=== PATIENT | female | born 1930 | race Caucasian/White ===

== ENCOUNTER → 2017-11-14 | Outpatient (CLI) | payer MEDICARE ==
[~2017-11-14] MED LIST: ALBU90OI INH; ALBU90OI6 INH; ASPI81CH PO; ATOR40TA; AZIT250 PO; BUDE6HFA INH; CRUTCH4 USE; DULO60 PO; FLUT.05NI; HYDACE5 PO; HYDHOMSY; HYDR1TAB94 PO; LEVSOD50 PO; MED FOR OSTEOPOROSIS; OSTEOPOROSIS MED; PRED20 PO; PRED5 PO; PREDNISONE; RALO60; SIMV20; SIMV40 PO; TRAZ50; [UNRECOGNIZED DRUG - OTHER]; [UNRECOGNIZED DRUG - REMARK]; [UNRECOGNIZED DRUG - REMARK]
== END | disposition home or self-care (01) ==
LOC: PLD 09:11 → LAB SHORT 09:11
DX: D48.5 Neoplasm of uncertain behavior of skin (principal)
CPT/HCPCS: 88304

== ENCOUNTER 2017-12-11 07:55 | Emergency (ER) | payer MEDICARE ==
[~2017-12-11] VITALS: Ht 160 cm; Wt 54.4 kg
[~2017-12-11 07:55] MED LIST changes: -ASPI81CH PO; -DULO60 PO; -HYDR1TAB94 PO
[2017-12-11] MEDS ORDERED: HYDR1TAB94 PO (08:32)
[2017-12-11] MEDS ORDERED: DULO60 PO (08:32)
[2017-12-11] MEDS ORDERED: PRED5 PO (08:32)
[2017-12-11] MEDS ORDERED: ASPI81CH PO (08:32)
[2017-12-11 08:52] LABS: BASOPHILS ABSOLUTE AUTO 0.06 K/mm3 (0.00-0.23); BASOPHILS PERCENT AUTO 1 % (0-2); EOSINOPHILS ABSOLUTE AUTO 0.63 K/mm3 (0.00-0.68); EOSINOPHILS PERCENT AUTO 5 % (0-6); Hematocrit 39.4 % (33.0-51.0); Hemoglobin 13.1 g/dL (11.5-16.0); IMMATURE GRAN ABSOLUTE AUTO 0.05 K/mm3 (0.00-0.10); IMMATURE GRAN PERCENT AUTO 0 % (0-1); LYMPHOCYTES ABSOLUTE AUTO 2.02 K/mm3 (0.84-5.20); LYMPHOCYTES PERCENT AUTO 17 % (21-46); MONOCYTES ABSOLUTE AUTO 1.79 K/mm3 (0.16-1.47); MONOCYTES PERCENT AUTO 15 % (4-13); Mean Corpuscular HGB 30.8 pg (26.0-34.0); Mean Corpuscular HGB Conc 33.2 g/dL (31.5-36.5); Mean Corpuscular Volume 93 fL (80-100); Mean Platelet Volume 9.2 fL (9.1-12.4); NEUTROPHILS PERCENT AUTO 61 % (41-73); Platelet Count 393 K/mm3 (150-400); RDW Coefficient Variation 12.7 % (11.7-14.2); RDW Standard Deviation 43.1 fL (35.1-46.3); Red Blood Cell Count 4.25 M/mm3 (3.80-5.20); White Blood Cell Count 11.75 K/mm3 (4.00-11.30)
[2017-12-11 09:16] LABS: Albumin, Blood 2.7 g/dL (3.4-5.0); Albumin/Globulin Ratio 0.6 (0.8-1.8); Bilirubin, Total 0.5 mg/dL (0.1-1.0); Bun/Creatinine Ratio 19.6 (12.0-20.0); Calcium, Blood 8.9 mg/dL (8.5-10.1); Creatinine, Blood 1.12 mg/dL (0.40-1.00); Globulin, Blood 4.3 g/dL (2.2-4.0)
== END 2017-12-11 11:36 | disposition home or self-care (01) ==
LOC: ER 07:55
PROVIDERS: Emergency Medicine
DX: K59.00 Constipation, unspecified (principal); E03.9 Hypothyroidism, unspecified; E78.5 Hyperlipidemia, unspecified; J44.9 Chronic obstructive pulmonary disease, unspecified; Z79.899 Other long term (current) drug therapy; Z79.52 Long term (current) use of systemic steroids
CPT/HCPCS: 36415; 74177; 80053; 83690; 85025; 93005; 93010; 99284; Q9967

== ENCOUNTER 2019-03-20 08:58 | Emergency (ER) | payer MEDICARE ==
[~2019-03-20] VITALS: Ht 160 cm; Wt 54.4 kg
[~2019-03-20 08:58] MED LIST changes: +AMLO5 PO; +ASPI81CH PO; +CEFU500T30; +DOCU100 PO; +DULO60 PO; +HYDR1TAB94 PO; +METO50ER PO; +PRED5; +TOLT4 PO; -TRAZ50; +TRAZ50 PO
[2019-03-20] MEDS ORDERED: Voltaren100 GM TOP ×2 (09:38→11:48)
[2019-03-20] MEDS ORDERED: Percocet 5-3251 EACH PO ×2 (09:38→11:48)
[2019-03-20] MEDS ORDERED: Colace100 MG PO ×2 (09:38→11:48)
== END 2019-03-20 10:27 | disposition home or self-care (01) ==
LOC: ER 08:58
DX: M75.22 Bicipital tendinitis, left shoulder (principal); E03.9 Hypothyroidism, unspecified; E78.5 Hyperlipidemia, unspecified; J44.9 Chronic obstructive pulmonary disease, unspecified; Z79.899 Other long term (current) drug therapy; Z87.891 Personal history of nicotine dependence
CPT/HCPCS: 99283

== ENCOUNTER 2019-03-28 14:00 | Inpatient (IN) | payer MEDICARE ==
[~2019-03-28] VITALS: Ht 162.6 cm; Wt 51.9 kg
[~2019-03-28 14:00] MED LIST changes: +Colace100 MG PO; +Percocet 5-3251 EACH PO; +Voltaren100 GM TOP
[2019-03-28 14:20] LABS: BASOPHILS ABSOLUTE AUTO 0.08 K/mm3 (0.00-0.23); BASOPHILS PERCENT AUTO 1 % (0-2); EOSINOPHILS ABSOLUTE AUTO 0.11 K/mm3 (0.00-0.68); EOSINOPHILS PERCENT AUTO 1 % (0-6); Hematocrit 39.9 % (33.0-51.0); Hemoglobin 12.7 g/dL (11.5-16.0); IMMATURE GRAN ABSOLUTE AUTO 0.08 K/mm3 (0.00-0.10); IMMATURE GRAN PERCENT AUTO 1 % (0-1); LYMPHOCYTES ABSOLUTE AUTO 1.49 K/mm3 (0.84-5.20); LYMPHOCYTES PERCENT AUTO 12 % (21-46); MONOCYTES ABSOLUTE AUTO 0.69 K/mm3 (0.16-1.47); MONOCYTES PERCENT AUTO 6 % (4-13); Mean Corpuscular HGB 29.8 pg (26.0-34.0); Mean Corpuscular HGB Conc 31.8 g/dL (31.5-36.5); Mean Corpuscular Volume 94 fL (80-100); Mean Platelet Volume 9.7 fL (9.1-12.4); NEUTROPHILS ABSOLUTE AUTO 9.79 K/mm3 (1.96-9.15); NEUTROPHILS PERCENT AUTO 80 % (41-73); Platelet Count 444 K/mm3 (150-400); RDW Coefficient Variation 13.8 % (11.7-14.2); RDW Standard Deviation 47.6 fL (35.1-46.3); Red Blood Cell Count 4.26 M/mm3 (3.80-5.20); White Blood Cell Count 12.24 K/mm3 (4.00-11.30)
[2019-03-28] MEDS ORDERED: PRED5 PO (14:34)
[2019-03-28 14:41] LABS: Alanine Aminotransfer (ALT/SGP 19 U/L (12-78); Albumin, Blood 3.5 g/dL (3.4-5.0); Alk Phos 82 U/L (50-136); Anion Gap 6 mmol/L (6-16); Aspartate Aminotrans (AST/SGOT 17 U/L (12-37); Bilirubin, Total 0.4 mg/dL (0.1-1.0); Blood Urea Nitrogen 35 mg/dL (8-24); Bun/Creatinine Ratio 29.2 (12.0-20.0); CO2, Blood 26 mmol/L (21-32); Calcium, Blood 9.5 mg/dL (8.5-10.1); Chloride, Blood 103 mmol/L (98-108); Globulin, Blood 3.5 g/dL (2.2-4.0); Glomerular Filtration Rate 45 (60-); Glucose, Blood 153 mg/dL (70-99); Magnesium, Blood 2.2 mg/dL (1.6-2.4); Potassium, Blood 4.8 mmol/L (3.5-5.5); Sodium, Blood 135 mmol/L (136-145); Troponin I <0.015 ng/mL (0.000-0.040)
--- NOTE | 2019-03-28 20:30 | NUR ---
ASSUMED CARE RECIEVED REPORT FROM TRAVEL SERVICE CONSULTANT. PT ARRIVED TO UNIT @ 1948 AND IS S/P ACID IMPLANTATION. PT IS SOMNOLENT, BUT FOLLOWS DIRECTIONS AND IS ORIENTED TO HERSELF AND WHERE SHE IS LOCATED. PT REPORTS NO CHEST PAIN, SOB, N/T, OR HAS ANY COMPLAINTS OTHER THAN FEELING COLD. PT'S FIELD START IV IN LEFT AC DOES NOT DRAW OR FLUSH, IV IN RIGHT WRIST FLUSHES AND DRAWS. PT'S ETREMETIES ARE COOL TO TOUCH, BUT STRONG PULSES IN ALL EXTREMETIES. HR IS IN 60-70'S. WAS IN ROOM BUT LEFT FOR NIGHT.
--- NOTE | 2019-03-28 20:30 | NUR ---
UPDATE PT COMFORTABLE IN BED. SLING IS ON LEFT ARM, AND ICE PACK IS PLACED ON SITE WHERE ACID WAS IMPLANTED. SWELLING AND ECCHYMOSIS PRESENT AROUND SITE. NO CREPITUS FELT (AT ONE POINT THERE MAY HAVE BEEN MINIMAL). PT DENIES CHEST PAIN, N/T (ASIDE FROM TINGLING IN FEET, WHICH SHE SAYS IS HER BASELINE), SOB, AND NAUSEA. BED LOW AND LOCKED, CALL LIGHT WITHIN REACH.
--- NOTE | 2019-03-29 03:04 | NUR ---
UPDATE PT'S PACEMAKER SITE REMAINS SWOLLEN, AND BRUISED. BUT DOES NOT APPEAR TO BE WORSE. ICE PACK HAD BEEN TAKEN OFF FOR 2 HOURS, AND IS NOW BEING REAPPLIED TO SITE. NO CREPITUS PALPATED. HR HAS BEEN 70-80'S THROUGHOUT NIGHT. BLOOD PRESSURE SLIGHTLY LABILE (SEE VS). PT REMAINS ON 2LNC, SAT'ING 92-94. PT DENIES DIZZINESS, SOB, CP, PAIN, AND NAUSEA.
[2019-03-29 03:20] LABS: BASOPHILS PERCENT AUTO 1 % (0-2); EOSINOPHILS ABSOLUTE AUTO 0.34 K/mm3 (0.00-0.68); EOSINOPHILS PERCENT AUTO 2 % (0-6); Hemoglobin 12.9 g/dL (11.5-16.0); IMMATURE GRAN ABSOLUTE AUTO 0.09 K/mm3 (0.00-0.10); IMMATURE GRAN PERCENT AUTO 1 % (0-1); LYMPHOCYTES ABSOLUTE AUTO 3.33 K/mm3 (0.84-5.20); LYMPHOCYTES PERCENT AUTO 18 % (21-46); MONOCYTES ABSOLUTE AUTO 2.04 K/mm3 (0.16-1.47); MONOCYTES PERCENT AUTO 11 % (4-13); Mean Corpuscular HGB 29.9 pg (26.0-34.0); Mean Corpuscular HGB Conc 32.3 g/dL (31.5-36.5); Mean Corpuscular Volume 93 fL (80-100); Mean Platelet Volume 9.9 fL (9.1-12.4); NEUTROPHILS ABSOLUTE AUTO 12.87 K/mm3 (1.96-9.15); NEUTROPHILS PERCENT AUTO 69 % (41-73); Platelet Count 417 K/mm3 (150-400); RDW Coefficient Variation 13.7 % (11.7-14.2); RDW Standard Deviation 47.1 fL (35.1-46.3); Red Blood Cell Count 4.32 M/mm3 (3.80-5.20); White Blood Cell Count 18.77 K/mm3 (4.00-11.30)
[2019-03-29 03:35] LABS: Bun/Creatinine Ratio 27.8 (12.0-20.0); Calcium, Blood 8.7 mg/dL (8.5-10.1); Creatinine, Blood 1.15 mg/dL (0.40-1.00); Magnesium, Blood 1.9 mg/dL (1.6-2.4); Potassium, Blood 4.4 mmol/L (3.5-5.5)
--- NOTE | 2019-03-29 05:27 | NUR ---
SHIFT SUMMARY PT SLEPT THROUGHOUT NIGHT. WHEN SHE IS AWAKE SHE IS ALERT AND ORIENTED SELF AND SURROUNDINGS. PT IS S/P ACID IMPLANTATION. SITE IS SWOLLEN, AND ECCHYMOTIC, BUT DID NOT GET WORSE OVERNIGHT. ICE PACKS HAVE BEEN ROTATED ON AND OFF SITE THROUGHOUT NIGHT. ARM SLING IN PLACE. PACEMAKER/ACID IS DDD, WITH A LOW RATE OF 60 AND A HIGH RATE OF 130; HAS NOT NEEDED THE CHANCE TO INHIBIT OR TRIGGER TONIGHT OF YET. PT HAS VERY FRAGILE SKIN, AND EARLY THIS MORNING SHE APPEARS TO BE SLIGHTLY DIAPHORETIC. PT DENIES CHEST PAIN, SOB, NAUSEA, OR PAIN IN GENERAL. PT DOES NOT FEEL HOT, AND IS AFEBRILE. PT HAS A BNP OF 334, THOUGH. PT RIGHT WRIST IV IS SALINE LOCKED, AND NS TKO IS CAPPED UNTIL NEXT DOSE OF ANTIBIOTIC. PT IS SLIGHTLY HYPERTENSIVE ALL NIGHT, SHE IS OFF HER HOME BP MED (LOPRESSOR) AND WAS STARTED ON NORVASC LAST NIGHT. SBP 150-160'S POST NORVASC DOSE. HR 70'S-80'S. APPEARS TO HAVE A LBBB, IS IN AFIB, AND HAS HAD MULTIPLE PVC'S AND ESCAPE VENTRICULAR BEATS. ADMISSION HISTORY NOT COMPLETELY DONE, DUE TO SOMNOLENT/LETHARGY S/P PROCEDURE. WAS AT BEDSIDE BRIEFLY, BUT WENT HOME AND STATES WILL RETURN IN THE AM. BED IS LOW AND LOCKED. CALL LIGHT WITHIN REACH.
[2019-03-29 10:16] LABS: Source, Urine Catheter
[2019-03-29 10:37] LABS: Appearance, Urine Clear (Clear); Bilirubin, Urine Neg (Neg); Blood, Urine Neg (Neg); Color, Urine Yellow (P-Yellow); Glucose Qualitative, Urine Neg (Neg); Ketones, Urine Neg (Neg); Leukocyte Esterase, Urine Neg (Neg); Nitrite, Urine Neg (Neg); Protein, Urine 2+ (Neg); Urobilinogen, Urine NORM (Normal)
[2019-03-29 11:04] LABS: Bacteria Rare /hpf; Red Blood Cells, Urine 0-2 /hpf (0-2); Squamous Epithelial Cells Not Seen /hpf (Few); White Blood Cells, Urine 0-2 /hpf (0-5)
[2019-03-29] MEDS ORDERED: LEVSOD50 PO (13:48)
--- NOTE | 2019-03-29 18:44 | NUR ---
SHIFT SUMMARY: NO ACUTE CHANGES NOTED T/O THE DAY. PT HAS BEEN HAVING SOME DIFFICULTY WITH PAIN, MEDICATED WITH ORDERED MEDS, BUT PT DENIES PAIN IS MANAGED STATING "I AM STILL IN PAIN". PACER SITE REMAINS UNCHANGED IN APPEARANCE NOTED TO BE VERY ECCHYMOTIC AND RED AROUND SITE. SOME TENDERNESS NOTED WITH PALPATION. T/O THE DAY PT BECAME 100% PACED. PHYSICAL THERAPY CAME IN TO ASSESS AND WORK WITH THE PT. PT IS NOTED TO BE ATTEMPTING TO USE HER L HAND/ARM TO BRACE HERSELF WHILE WALKING EVEN WITH MULTIPLE VERBAL AND PHYSICAL (BY PLACING STAFF HANDS ON HER HAND) QUES TO NOT USE HER L ARM. PT CALLED OUT IN FEAR OF FALLING WHEN PHYSICAL THERAPY WAS SCOOTING HER TO THE EDGE OF THE BED. VSS T/O THE DAY. WILL CONTINUE TO MONITOR AND REPORT TO ONCOMING RN.
--- NOTE | 2019-03-29 22:23 | NUR ---
START OF SHIFT: REPORT FROM UMANG MERAZ. PT A+O, VSS, LEFT S/P PACEMAKER SITE WITH SIGNIFICANT BRUISING NOTED AROUND SITE WITH WHAT APPEARS SLIGHT LEFT OF NECK/CLAVICLE SWELLING WHICH IS SOFT AND NON-PAINFUL WHEN PALPATED. NO CREPITUS NOTED. PT CONTINUES WITH LEFT ARM IMMOBILIZER AND USES CALL LIGHT APPROPRIATELY WHEN NEEDS BSC. PT OTHERWISE PLEASANT AND REQUESTS TO SLEEP TONIGHT. PT WAS ORDERED HOME MED TRAZADONE AND WAS GIVEN ORDERED DOSE. PT CONTINUES ON MONITOR WITH HR 80'S-TO LOW 100'S C/ ACITIVITY, IS 100% PACED C/ OCCASIONAL PVC'S. PT THUS FAR HAS BEEN RESTING WELL USING CALL LIGHT ONCE, SO FAR, TO USE BSC. CALL LIGHT WITHIN REACH.
--- NOTE | 2019-03-30 05:49 | NUR ---
SHIFT SUMMARY: PT RESTED MOST OF NOC. VSS. PT CALLING OUT MORE THAN USING CALL LIGHT WHEN NEEDING TO VOID. PT EACH TIME STATED WAS TRYING TO GET OUT OF BED TO USE THE RESTROOM. PT NEEDING FULL ASSIST WHEN UP AND SEEMS FEARFUL TO STAND UPRIGHT. PT NEEDING CONSTANT REMINDERS NOT TO USE LEFT ARM. HOWEVER, PT MORE PLEASANT AND MORE CONVERSIVE THIS NOC SHIFT. WILL REPORT OFF TO ONCOMING RN. CALL LIGHT WITHIN REACH.
--- NOTE | 2019-03-30 07:05 | NUR ---
ASSUMED CARE: RECEIVED REPORT FROM NOC RN. NO CHAGES NOTED T/O THE NIGHT. NO DISTRESS NOTED. PT APPEARS TO BE DEPRESSED TODAY NOTED BY HER FACIAL EXPRESSIONS AND THE STATEMENT OF HER HAIR FALLING OUT MAKING HER FEEL SAD. WILL CONTINUE TO MONITOR AND ASSESS.
--- NOTE | 2019-03-30 08:37 | NUR ---
INTERCANULA REPLACEMENT: CALL LIGHT ON, UPON ENTERING THE ROOM PT HAS INTERCANULA WITH ALL ALL ATTACHMENTS ATTACHED IN HER HAND. MT Hernandez RN REPLACED INTERCANULA, ONCE IN PT STATES IT FELL ON THE FLOOR. DECIDED TO REPLACE INTERCANULA OBTAINED KIT THAT WAS JUST OUTSIDE THE ROOM AND REPLACED INTERCANULA WITH NEW ONE. NOTIFIED CARLTON PRADHAN OF REPLACEMENT.
--- NOTE | 2019-03-30 18:21 | NUR ---
Called to meet with family and patient to discuss advance directives. Pt resting in bed eating some of her dinner with good tolerance. Pt alert has some trouble tracking conversation but able to participate in converstion. has reviewed advance directive and want to updat them for himself and the patient. extensive conversation of their judie care needs, we discussed perez, POA estate planning and how to support children in careing for them. We initiated AD and he will discuss with his son and have them witnessed. We completed A POLST for the patient. We discussed carefully what the function of the implated device. we reviewed that if she should have an event at home what to tell the paramedics. We reviewed all levels of treatment. they both feel they would not want CPr and want limited treatments no intubation. We review spiritual beliefs and not descriminating on age. encourged them to express their feeling since they were deciding together. It was a beautiful interaction to witness! The patients will review their choices with their sons. Physican notified of completed polst.
--- NOTE | 2019-03-30 19:16 | NUR ---
SHIFT SUMMARY: NO ACUTE CHANGES NOTED T/O THE DAY TALKED TO THE FAMILY ABOUT ADVANCE DIRECTIVES, PROVIDED PT AND WITH ONE TO FILL OUT. REQUESTED A SECOND ONE SO HE COULD FILL ONE OUT FOR HIMSELF WELL. CALLED TEA IN [facility] TO FURTHER EDUCATE PT AND . POST OBTAINED AND PLACED ON THE FRONT OF THE CHART. DR NOE NOTIFIED OF POLST AND RECEIVED NEW ORDERS FOR DNR, DR AWARE POLST IS ON THE FRONT OF CHART FOR DR TO SIGN TOMORROW. VSS T/O THE DAY. WILL CONTINUE TO MONITOR AND REPORT TO ONCOMING RN.
--- NOTE | 2019-03-30 19:50 | NUR ---
ASSUMED CARE PT IS ALERT AND ORIENTED X 2-3, SHE KNOWS SHES IN A HOSPITAL BUT SAID "IN [place]". SLIGHTLY IRRITABLE AND CONFUSED. STATED "YOU AREN'T GOING TO HOOK ME UP TO ANYTHING... WHO DO YOU REPRESENT?" WHEN I WENT TO PUT THE PULSE OX ON HER FINGER. CURRENTLY WATCHING TV, CONTENT, IN BED. LEFT ARM IS SLING, AND SHE IS REMINDED TO NOT USE IT. PT DENIES CP, SOB, NAUSEA, AND ANY PAIN IN GENERAL. SCD'S IN PLACE. CALL LIGHT WITHIN REACH. BED LOW AND LOCKED.
--- NOTE | 2019-03-30 21:23 | NUR ---
CHANGE IN MENTATION PT IS VERY CONFUSED, ANGRY/IRRITABLE, AND HAS SLIGHT PARANOIA. REFUSING AND BATTLING WITH ME REGARDING HER ASSESSMENT, AND TAKING VITALS. SHE IS MAKING ODD STATMENTS REGARDING "MEETINGS GOING ON OUTSIDE THE ROOM; WHO DO I REPRESENT; WHO IS THE SHALE PROCESSING TECHNICIAN OF THIS ESTABLISHMENT; ETC..." SHE THINKS THERE IS A CONSPIRACY GOING ON, AND THAT SHES IN [place]. AFTER REDIRECTING/REASSURING HER THAT SHES IN THE ICU/HOSPITAL AT [facility] IN [place], SHE GETS AGITATED EASILY SAYING "I KNOW THAT!" SHE IS VERY FORGETFUL ASKING THE SAME/SIMILAR QUESTIONS OVER AGAIN. SHE REQUESTED TO CALL HER , AND HE IS NOW AT BEDSIDE. PER , THIS IS NOT NORMAL BEHAVIOR FOR HER. DAY RN, DESCRIBED DIFFERENT MORE ORIENTED BEHAVIOR THAN THIS. HAD SOME LUCK TALKING TO HER, CALMING HER DOWN A LITTLE BUT SHE IS STILL PARANOID AND IRRITABLE. I WAS ABLE TO GET HER BLOOD PRESSURE, BUT SHE IS REFUSING ANY FUTURE VITAL SIGNS, AND ASSESSMENTS. KEVIN THE AUTO ELECTRICAL TECHNICIAN, CAME IN TO ROOM AND WITNESSED MOST OF THIS BEHAVIOR. I ALSO WAS ABLE TO TALK HER IN TO TAKING HER ANTIBIOTIC BEFORE BEDTIME. SHE IS CURRENTLY IN ROOM WITH , BOTH APPEAR TO BE SLEEPING. BED LOW AND LOCKED. CALL LIGHT WITHIN REACH.
--- NOTE | 2019-03-31 00:50 | NUR ---
UPDATE PT STARTING TO INTENTIONALLY DISCONNECT EKG CHORDS. WAS ABLE TO DISTRACT HER AND GET HER ATTENTION ON SOMETHING DIFFERENT. CONTINUING TO BE IRRITABLE, PARANOID, AND CONFUSED. SHE IS NOT UNDERSTANDING WHY SHE JUST CAN'T GO HOME. SHE IS CONVINCED THERE ARE "MEETINGS" OCCURING OUTSIDE HER ROOM. ALSO STATED THAT SHE WON'T TAKE ANY MEDICATIONS FROM ME. PT IS NOW NOT BEING PACED ( OF 23 TONIGHT), AND IS IN AFIB WITH A RATE BETWEEN 120-150, DENIES CP/SOB, AND NAUSEA. PLACED CALL TO CA, HE DISCUSSED WITH ME THAT THE EKG CHANGE IS RELATED TO ICU DELERIUM, OR WHATEVER IS GOING ON PSYCHOLOGICALLY WITH THE PT. PLACED CALL TO HOSP ([facility]) AND HE ORDERED 5MG ZYPREXA IM NOW.
[2019-03-31 03:28] LABS: BASOPHILS ABSOLUTE AUTO 0.06 K/mm3 (0.00-0.23); BASOPHILS PERCENT AUTO 0 % (0-2); EOSINOPHILS ABSOLUTE AUTO 0.37 K/mm3 (0.00-0.68); EOSINOPHILS PERCENT AUTO 2 % (0-6); Hematocrit 38.3 % (33.0-51.0); Hemoglobin 12.2 g/dL (11.5-16.0); IMMATURE GRAN ABSOLUTE AUTO 0.11 K/mm3 (0.00-0.10); IMMATURE GRAN PERCENT AUTO 1 % (0-1); LYMPHOCYTES ABSOLUTE AUTO 2.27 K/mm3 (0.84-5.20); LYMPHOCYTES PERCENT AUTO 13 % (21-46); MONOCYTES PERCENT AUTO 15 % (4-13); Mean Corpuscular HGB Conc 31.9 g/dL (31.5-36.5); Mean Corpuscular Volume 94 fL (80-100); Mean Platelet Volume 10.2 fL (9.1-12.4); NEUTROPHILS ABSOLUTE AUTO 11.84 K/mm3 (1.96-9.15); NEUTROPHILS PERCENT AUTO 69 % (41-73); Platelet Count 329 K/mm3 (150-400); RDW Coefficient Variation 13.7 % (11.7-14.2); RDW Standard Deviation 47.8 fL (35.1-46.3); Red Blood Cell Count 4.06 M/mm3 (3.80-5.20); White Blood Cell Count 17.25 K/mm3 (4.00-11.30)
[2019-03-31 03:47] LABS: Anion Gap 7 mmol/L (6-16); Blood Urea Nitrogen 25 mg/dL (8-24); Bun/Creatinine Ratio 26.9 (12.0-20.0); CO2, Blood 26 mmol/L (21-32); Calcium, Blood 8.8 mg/dL (8.5-10.1); Chloride, Blood 106 mmol/L (98-108); Creatinine, Blood 0.93 mg/dL (0.40-1.00); Glomerular Filtration Rate >60 (60-); Glucose, Blood 122 mg/dL (70-99); Potassium, Blood 4.3 mmol/L (3.5-5.5); Sodium, Blood 139 mmol/L (136-145)
--- NOTE | 2019-03-31 04:14 | NUR ---
UPDATE PT REFUSES 0400 VITAL SIGNS. PT HAD A BRIEF REST POST ZYPREXA IM AND EVEN LET LAB DO A BLOOD DRAW. BUT NOW REMAINS CONFUSED, PARANOID, AND IRRITABLE.
--- NOTE | 2019-03-31 06:27 | NUR ---
SHIFT SUMMARY PT IS CURRENTLY AT THE SAME MENTATION. REFUSING ALL CARE. SHE BELIEVES THAT WE (THE NURSES AND ANY STAFF THAT HAS GONE IN THE ROOM) HAVE TAKEN OVER THE HOSPITAL AND ARE USING IT A COVER TO DO WHATEVER WE ARE SUPPOSABLY DOING. VERY PARANOID AND IRRITABLE. BELIEVES HER IS NOW 'PART OF THE CONSPIRACY'. PT REMAINED IN SLING OVERNIGHT. PT NOW IN AFIB WITH 0% PACING. THIS CHANGE OCCURED AROUND MIDNIGHT. PT DENIED CP/SOB, BUT WHO KNOWS HOW MUCH OF WHAT SHE SAYS IS ACCURATE. TALKED TO - THIS BEHAVIOR IS ALL ABNORMAL, HOWEVER, HAD AN EPISODE OF IRRATIONAL PARANOIA 6MO AGO, THAT WAS RESOLVED. NOW BACK AT BEDSIDE. BED LOW AND LOCKED.
--- NOTE | 2019-03-31 07:39 | NUR ---
ASSUMED CARE: PT SITTING IN BED, AT BEDSIDE. STATES SHE IS GOING HOME TODAY. NIGHT RN STATES SHE HAS BEEN SHOWING SIGNS OF PARANOIA. NO ACUTE NEEDS OR CONCERNS AT THIS TIME.
--- NOTE | 2019-03-31 10:08 | NUR ---
PT'S SON CALLED TO RECIEVE AN UPDATE. DISCUSSED WITH PT'S WHO STATES HE WILL CALL HIM TO GIVE HIM A DETAILED UPDATE. SON HAS BEEN MADE AWARE OF THIS
--- NOTE | 2019-03-31 10:20 | NUR ---
CALL TO DR PENALOZA THIS AM ABOUT PT'S HR. CURRENTLY AFIB IN 1TEENS BUT TOUCHING IN 130S AT TIMES. SEE NEW ORDERS. STATES TO GIVE TOPROL XL NOW AND TO CALL IF BECOMES HYPERTENSIVE BUT WANTS TO GIVE MED THE DAY TO MANAGE HR. RELIEF WORKER AWARE
--- NOTE | 2019-03-31 10:37 | NUR ---
PT'S STOOD BY AT BEDSIDE WHILE PT TOOK TOPROL. SHE APPEARS TO BE MORE AGREEABLE TO TAKING MEDS IF HE REITERATES WHAT STAFF SAYS TO HER
--- NOTE | 2019-03-31 13:30 | NUR ---
CALL TO DR NOE FOR PT'S URINARY RETENTION. BLADDER SCAN REVEALED AVERAGE OF 450. ORDERED STRAIGHT CATH. PERFORMED WITH ASSISTANCE OF KEYMODULE ASSEMBLY SUPERVISOR. NO FURTHER NEEDS AT THIS TIME.
--- NOTE | 2019-03-31 14:35 | NUR ---
[facility] initial visit: Mrs. Cantrell was alone in room and quite angry. She complained to me that she doesn't like her bed, the food, the TV... She also had trouble mentally focusing on one thing. As she told me a concern and I began to address (such as cutting up her lunch for her), she would deny she asked for help. 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 She declined prayer and did not calm to quiet assurance of care and attention. I will remain available to pt and spouse.
--- NOTE | 2019-03-31 14:40 | NUR ---
pt aggitated today but denies pain. wanting out of bed. heart rate increased.
--- NOTE | 2019-03-31 17:33 | NUR ---
jj filed on chart and orignal and copies prepared for family
--- NOTE | 2019-03-31 17:36 | NUR ---
SHIFT SUMMARY: PT RESTING IN BED WITH AT BEDSIDE. HAS BEEN CALM WHEN VISITORS ARE WITH HER. HAS NOT REFUSED CARE THIS SHIFT. CURRENTLY AFIB WITH HR OF 111. DENIES CHEST PAIN. STRAIGHT CATH ONCE THIS SHIFT FOR RETENTION. ARM IMMOBILIZER IN PLACE DUE TO NEW PACER. ASSISTED UP TO BSC ONCE WITH HEAVY 2 ASSIST REQUIRED. NO FURTHER NEEDS OR CONCERNS.
--- NOTE | 2019-03-31 22:08 | NUR ---
PATIENT AWAKE AND CONFUSED, YELLING OUT AT TIMES. TAKING PO MEDICATIONS WITHOUT DIFFICULTY. PATIENT NOW HALLUCINATING SEEING PEOPLE IN THE ROOM, THINKING THAT SHE IS AT HOME AND ANGRY THAT PEOPLE HAVE BROUGHT IN GIFTS AND HANG THEM ON THE WHITNEY. ATTEMPTING TO REORIENTED PATIENT TO BEING IN THE HOSPITAL, PATIENT BECOMING ANGRY WITH ATTEMPT TO REMIND PATIENT THAT SHE IS IN THE HOSPITAL. PATIENT INCONT OF URINE ATTENDS IN PLACE. LEFT SHOULDER IMMOBILIZER IN PLACE DRESSING TO LEFT CHEST CD&I WITH BRUISING. SMALL SKIN TEAR TO LEFT WRIST, NAME BAND REMOVED AND AREA COVERED WITH FOAM DRESSING.
--- NOTE | 2019-03-31 23:47 | NUR ---
PATIENT AWAKE AND INSISTING TO GET OUT OF BED TO TOILET. ATTEMPTING TO GET PATIENT UP PATIENT HAS VERY POOR BALANCE AND UNABLE TO SIT AT SIDE OF BED. PATIENT LAYED BACK DOWN AND PLACED ON BED WILLARD. PATIENT PASS FLATUS BUT NO URINE. APROX 1/2HR LATER PATIENT RESTLESS AGAIN AND ATTEMPTING TO GET OUT OF BED. PATIENT PLACED ON BED WILLARD AND AGAIN NO URINE BUT PASSING GAS.
--- NOTE | 2019-04-01 00:14 | NUR ---
PATIENT ATTEMPTING TO GET OUT OF BED TO VOID AGAIN, BED WILLARD PLACED WITH NO RESULTS. BLADDER SCAN DONE SHOWING 199CC OF URINE. ATTENDS REPLACED.
[2019-04-01 03:24] LABS: Hematocrit 38.3 % (33.0-51.0); Hemoglobin 12.1 g/dL (11.5-16.0); Mean Corpuscular HGB 29.5 pg (26.0-34.0); Mean Corpuscular HGB Conc 31.6 g/dL (31.5-36.5); Mean Corpuscular Volume 93 fL (80-100); Mean Platelet Volume 10.2 fL (9.1-12.4); Platelet Count 325 K/mm3 (150-400); RDW Standard Deviation 47.9 fL (35.1-46.3); White Blood Cell Count 16.27 K/mm3 (4.00-11.30)
[2019-04-01 03:42] LABS: Albumin, Blood 3.3 g/dL (3.4-5.0); Anion Gap 7 mmol/L (6-16); Blood Urea Nitrogen 32 mg/dL (8-24); Bun/Creatinine Ratio 32.6 (12.0-20.0); CO2, Blood 27 mmol/L (21-32); Chloride, Blood 107 mmol/L (98-108); Creatinine, Blood 0.98 mg/dL (0.40-1.00); Glomerular Filtration Rate 57 (60-); Glucose, Blood 121 mg/dL (70-99); Phosphorus, Blood 2.4 mg/dL (2.5-4.9); Potassium, Blood 4.1 mmol/L (3.5-5.5); Sodium, Blood 141 mmol/L (136-145)
--- NOTE | 2019-04-01 05:45 | NUR ---
SUMMARY PATIENT AWAKE MOST OF THE NIGHT, RESTLESS AND CONFUSED. PULLING AT IMMOBILIZER TO HER LEFT ARM, DESPITE FREQUENT ATTEMPTS TO REORIENTED AND REASSURE PATIENT. MULTIPLE BRUISING AND SKIN TEARS. DRESSING TO LEFT CHEST WALL CD&I WITH LARGE BRUISING AND SLIGHTLY SWOLLEN. ATTENDS REMAIN IN PLACE DUE TO INCONTINENCE. ATTEMPT TO SIT PATIENT ON SIDE OF BED, PATIENT HAVING DIFFICULTY WITH BALANCE WHEN SITTING ON SIDE OF BED. OXYGEN OFF AND ON T/O NIGHT.
--- NOTE | 2019-04-01 07:30 | NUR ---
ASSUMED CARE: PT RESTING QUIETLY IN BED AT THIS TIME. HR IN 1-TEENS. NO ACUTE NEEDS AT THIS TIME.
[2019-04-01] MEDS ORDERED: CEPH500 PO (12:37)
[2019-04-01] MEDS ORDERED: AMLO5 PO (12:37)
[2019-04-01] MEDS ORDERED: Colace100 MG PO (12:38)
--- NOTE | 2019-04-01 12:40 | NUR ---
WORKING SECOND HAND SABINE CALLED THIS RN AND STATED DC TO SNF WILL NOT BE TODAY. CALL TO DR ABBOTT TO MAKE HER AWARE. ASKED IF PT NEEDED TO REMAIN PCU STATUS. SAYS TO KEEP PT PCU STATUS. MANIFOLD OPERATOR AWARE
--- NOTE | 2019-04-01 17:44 | NUR ---
PT TRANSFERRED TO PCU 10. REPORT CALLED TO MARIYA VALLEJO. TRANSFERRED VIA BED BY HOSPITAL STAFF. PT'S AT BEDSIDE AND AWARE OF TRANSFER
--- NOTE | 2019-04-01 19:42 | NUR ---
TRANSFER NOTE RECEIVED REPORT FROM KEVON BEVERLY RN IN ICU. PT TO ROOM VIA BED, 3 PERSON TRANSFER WITH SLIDER SHEET AT 1725. PT/SPOUSE ORIENTED TO ROOM AND CALL LIGHT. BED ALARM IN PLACE. PT A&Ox2, FORGETFUL. PT STATES SHE IS IN [place] AT HOME. 2 PERSON ASSIST TO BSC WITH GB AND WALKER. PT CURRENTLY ON 1L O2 VIA NC, RA-2LS PER REPORT. LS DIM IN BASES. RESP EVEN AND UNLABORED. SOB WITH EXERTION. PT DENIES PAIN AND NAUSEA. PT SPOUSE ASSIST WITH DINNER. BRUISING AND SLIGHT SWELLING NOTED TO LEFT CHEST WALL, PACEMAKER PLACED 03/28. LEFT ARM IN IMMOBILIZER, PT ENCOURAGED NOT TO USE ARM. VSS. NO OTHER ACUTE CHANGES NOTED. REPORT GIVEN TO ONCOMING RN.
--- NOTE | 2019-04-02 00:41 | NUR ---
ASSUMED PT CARE AT 1915 PT SLEEPING IN BED UPON BEDSIDE REPORT; HOWEVER, SHE IS EASILY AROUSABLE. NOTED TO HAVE 1L OXYGEN VIA NC WITH OXYGEN SATURATIONS 93%. ORDERS TO TITRATE PT OFF OXYGEN; PT QUICKLY DESATS TO 70'S WITH NO OXYGEN, BUT RECOVERS QUICKLY. PT IS ALERT TO SELF AND FOLLOWS DIRECTIONS APPROPRIATELY. BRUISING NOTED TO UPPER CHEST WITH DRESSING COVERING PACEMAKER TO LEFT UPPER CHEST WALL. RHYTHM IS NOTED TO BE AFIB WITH HR 90-100'S. PT DENIES ANY PAIN. IT WAS REPORTED THAT PT HAS ORDERS TO BLADDER SCAN D/T RETENTION. PT WAS ABLE TO VOID ON BEDPAN AND UNMEASURABLE AMOUNT D/T SPILLAGE. CALL LIGHT WITHIN REACH. PT VERY TIRED AND HAS BEEN SLEEPING ALL OF SHIFT.
--- NOTE | 2019-04-02 04:27 | NUR ---
END OF SHIFT SUMMARY NO SIGNIFICANT CHANGES TO REPORT. PT HAS BEEN SLEEPING MOST OF SHIFT. WAKES UP CALLS OUT TO USE THE RESTROOM. PT DOES NOT UTILIZE HER CALL LIGHT. PT HAS BEEN CONTINENT OF BLADDER UTILIZING THE BEDPAN, BUT INCONTINENT WITH SMALL SMEARS OF BM IN ATTEND EACH TIME PT CALLS FOR THE RESTROOM. IT APPEARS PT HADN'T HAD A BM SINCE ADMIT UNTIL YESTERDAY IT WAS CHARTED SHE HAD A SMALL, UNFORMED BM. CALLED DR. JOYA TO UPDATE REGARDING BM STATUS; HE STATED HE WOULD ENTER ORDERS FOR BOWEL CARE REGIMEN. PACEMAKER SITE CONTINUES WITH DRESSING COVERING, WELL LEFT ARM IMMOBILIZER IN PLACE. CALL LIGHT LEFT WITHIN REACH. WILL CONTINUE FREQUENT VISUAL CHECKS AND MONITORING UNTIL REPORT HIS HANDED OFF TO ONCOMING RN.
--- NOTE | 2019-04-02 07:20 | NUR ---
ASSUMED CARE OF PT AT 0700. PT RESTING IN BED, ALERT AND ORIENT TO PERSON, DATE, FAMILY AND FOLLOWING DIRECTION. PT 93% ON RA, REPORTS MILD SOB THIS AM, RESP AT 24, EVEN, LS CLEAR. PT DENIES PAIN AND NAUSEA. BRUISING TO LEFT CHEST WALL, PACEMAKER PLACED 03/28/19. LEFT ARM IN IMMOBILZER. VSS. SPOUSE AT BEDSIDE. PT ASKING IF SHE WILL GET TO GO HOME TODAY. PT 1-2 PERSON ASSIST TO CHAIR. WILL CONTINUE TO MONITOR.
--- NOTE | 2019-04-02 17:09 | NUR ---
SHIFT SUMMARY PT A&O TO SELF, TIME, FAMILY, SURROUNDING AND FOLLOWING DIRECTIONS. PT RESTING IN BED FOR MAJORITY OF SHIFT. UP IN CHAIR FOR MEALS. PT 1 PERSON ASSIST TO BSC. PT DENIES PAIN DURING SHIFT. PT REPORTS MILD SOB WHILE IN BED THIS AM, PT REPORTS THAT IT RESOLVED. PT REPORTS NAUSEA AND HAD ONE EPISODE OF EMESIS THIS AFTERNOON, ZOFRAN x1 WITH POSITIVE RESULTS. PT RECEIVING PO ANTIBIOTIC. PACEMAKER PLACED IN LEFT CHEST WALL 03/28/19, NO CHANGES TO SITE T/O SHIFT. LEFT ARM IN IMMOBILZER. VSS. NO OTHER ACUTE CHANGES NOTED DURING SHIFT. PLANS TO DISCHARGE PATIENT TO [facility], REPORT GIVEN TO DORY THE NURSE ASSUMING CARE OF PATIENT, AT 1645. EDUCATED PT ON POST PACEMAKER PLACEMENT AND PROVIDED EDUCATION ON THE SITE CARE. EDUCATED PT AND SPOUSE ON FOLLOW UP APPOINTMENTS AND MADE DORY AT [facility] IS AWARE OF FOLLOW UP APPOINTMENTS. PT/SO STATES THEY NEVER RECEIVED TEMP ID CARD FOR PACEMAKER, PROVIDED WITH A COPY FROM THE CHART. WILL CONTINUE TO MONITOR UNTIL TRANSPORTED TO [facility].
--- NOTE | 2019-04-02 18:05 | NUR ---
[facility] TO ROOM TO TRANSPORT PT TO [facility]. PT LEFT ROOM AT 1805. PT STABLE UPON DISCHARGE
== END 2019-04-02 18:08 | DRG 242 ==
LOC: ER 14:00 → ICUW 14:01 → ICUE 16:02 → PCU 04-01 17:46
PROVIDERS: Emergency Medicine; ADMIT Internal Medicine
PROC: 0JH606Z Insertion of Pacemaker, Dual Chamber into Chest Subcutaneous Tissue and Fascia, Open Approach (ICD-10-PCS; principal; 2019-03-28)
PROC: 02H63JZ Insertion of Pacemaker Lead into Right Atrium, Percutaneous Approach (ICD-10-PCS; 2019-03-28)
PROC: 3E0102A Introduction of Anti-Infective Envelope into Subcutaneous Tissue, Open Approach (ICD-10-PCS; 2019-03-28)
DX: I44.1 Atrioventricular block, second degree (principal); G92 Toxic encephalopathy; I48.2 Chronic atrial fibrillation; J44.9 Chronic obstructive pulmonary disease, unspecified; Z66 Do not resuscitate; R55 Syncope and collapse; E78.5 Hyperlipidemia, unspecified; M35.3 Polymyalgia rheumatica; I12.9 Hypertensive chronic kidney disease with stage 1 through stage 4 chronic kidney disease, or unspecified chronic kidney disease; N18.3 Chronic kidney disease, stage 3 (moderate); Z87.891 Personal history of nicotine dependence
CPT/HCPCS: 33208; 36415; 51702; 71045; 71046; 80048; 80053; 80069; 81001; 83735; 83880; 84484; 85025; 85027; 93005; 93010; 96365; 96366; 96375; 97110; 97116; 97162; 97530; 99152; 99153; 99285-25; A9270; C1781; C1785; C1898; G0378; J0461; J0690; J1644; J2250; J2405; J3010; J7030; J7040; J7050; J7060; J7120; J7512; Q9967

== ENCOUNTER 2019-06-25 12:54 | Emergency (ER) | payer MEDICARE ==
[~2019-06-25] VITALS: Ht 160 cm; Wt 51.3 kg
[~2019-06-25 12:54] MED LIST changes: +CEPH500 PO
[2019-06-25] MEDS ORDERED: XARELTO15 MG PO (13:32)
[2019-06-25 15:10] LABS: Calcium, Ionized (POC) 1.14 mmol/L (1.10-1.46); Chloride (POC) 100 mmol/L (98-108); Creatinine (POC) 1.4 mg/dL (0.6-1.0); Glucose (ISTAT POC) 114 mg/dL (70-99); Hemoglobin (POC) 12.6 g/dL (12.0-16.0); Potassium (POC) 3.7 mmol/L (3.5-5.5); Sodium (POC) 137 mmol/L (135-148); Total CO2 (POC) 27 mmol/L (21-32)
== END 2019-06-25 16:23 | disposition home or self-care (01) ==
LOC: ER 12:54
PROVIDERS: Emergency Medicine
DX: S00.03XA Contusion of scalp, initial encounter (principal); E87.8 Other disorders of electrolyte and fluid balance, not elsewhere classified; W01.198A Fall on same level from slipping, tripping and stumbling with subsequent striking against other object, initial encounter; Z88.1 Allergy status to other antibiotic agents; Z88.8 Allergy status to other drugs, medicaments and biological substances; Z79.899 Other long term (current) drug therapy; Z79.82 Long term (current) use of aspirin; Z79.52 Long term (current) use of systemic steroids; E03.9 Hypothyroidism, unspecified; E78.5 Hyperlipidemia, unspecified; J44.9 Chronic obstructive pulmonary disease, unspecified; I48.91 Unspecified atrial fibrillation; Z87.891 Personal history of nicotine dependence
CPT/HCPCS: 70450; 80047; 85014; 90471; 90714; 99284-25